=== PATIENT | female | born 1970 | race Caucasian/White ===

== ENCOUNTER 2024-03-31 15:56 | Outpatient (REF) | payer BC, SELFPAY ==
[2024-03-31 19:16] LABS: Erythrocyte Sedimentation Rate 10 MM/HR (0-20)
[2024-04-08 14:49] LABS: Aldolase 5.6 U/L (<=8.1)
== END 2024-03-31 15:57 | disposition home or self-care (01) ==
LOC: HO.LAB 15:56
PROVIDERS: PCP Internal Medicine; Visit Provider Psychiatry & Neurology Neurology
DX: E11.40 Type 2 diabetes mellitus with diabetic neuropathy, unspecified (principal)
CPT/HCPCS: 36415; 82085; 82550; 85652

== ENCOUNTER 2024-04-01 11:56 | Emergency (ER) | payer BC, SELFPAY ==
[2024-04-01 12:03] VITALS: BP 145/85; PULSE 105; RESP 20; TEMP 36.7; O2SAT 99; BMI 30.1
--- NOTE | 2024-04-01 12:04 | ED_ITS ---
HPI - General Adult General Chief complaint: General Medical Stated complaint: exposure to animal, rabies? Time Seen by Provider: 04/01/24 14:02 History of Present Illness HPI narrative: Patient with complaint of feeling that both of her legs may have been week when she went into a squatting position in a store several days ago and had trouble standing back up, but then was able to stand up and walk normally, she has no weakness now and is walking normally and able to squat and stand up normally She did see her neurologist about this Dr. Man who sent some labs and she can follow-up with him Her main concern is that she was bitten on her hand by a squirrel over 6 weeks ago and is worried this could be rabies Today she has no weakness no abnormal pains no headache no confusion no dizziness no vision change no unilateral symptoms ever denies any facial it is asymmetry denies any head trauma denies any stiff neck denies any fevers, denies any trouble urinating no dysuria no incontinence no changes to bowel or bladder no problem walking Related Data Previous Rx's ?Medication ?Instructions ?Recorded erythromycin 5 mg/gram (0.5 %) eye 0.5 inch ophthalmic (eye) BID 7 04/01/24 ointment days #3.5 grams Allergies Allergy/AdvReac Type Severity Reaction Status Date / Time No Known Allergies Allergy Verified 04/01/24 12:11 [No Known Allergies*] [facility] Past Medical History Source: nursing notes reviewed Social History Social History (System 05/16/21 @ 13:15 by Miranda Andrade) Advance Directives: No Advance Directives Information Provided: No Do you have a plan to hurt others: No Plan Physical Exam ED Vital Signs: Vital Signs - 24 hr 04/01/24 12:03 04/01/24 16:02 04/01/24 16:06 Temperature 98.1 F 97.9 F 97.9 F Pulse Rate 105 H 81 81 Respiratory Rate 20 20 20 Blood Pressure 145/85 H 141/87 H 141/87 H Pulse Oximetry 99 98 98 Oxygen Delivery Method Room Air BMI result Body Mass Index 30.1 General appearance is no distress, comfortable and cooperative The head is normocephalic atraumatic Pupils equal round reactive to light extraocular motions are intact Neck is supple Respiratory no distress Extremities full range motion x4 Skin no obvious rash Neuro gait and balance are normal, patient can squat and easily rise up patient can walk on tiptoes can walk on heels patient can walk heel to toe Cranial nerves 2-12 intact, no facial asymmetry, motor is 5/5 x4 and symmetrical, sensation is intact and symmetrical in distal extremities, cerebellar exam [id number] is normal Course Course Course Narrative: This is a Rapid Medical Examination (RME) performed by Arnoldo Jama PA-C in triage. Full HPI, ROS, assessment and treatment plan per primary provider in the Main ED. 53 yo female hx of DM w/ neuropathy here for eval of clumsiness and weakness to lower extremities x 3weeks. admits to 2-3 falls over the last months due to this. admits to squirrel bite to her right either 3rd or 4th digit about 6 wks ago. the squirrel was then found on 02/28/24. states she knows this is the same squirrel and is concerned. Recent EMG testing on RUE and RLE. she told her neurologist about these symptoms yesterday who ordered ESR, CPK, and aldolase checked. since this time, has become more anxious regarding these symptoms. sensation intact to light touch throughout. strength 5/5 intact throughout. ambulating with steady gait. Plan: labs ordered. she is requesting her hgb A1C be checked. Patient's labs drawn today as well as a ESR sent by Dr. Man were all normal except glucose which is 187 A confirmed that is squirrel bites do not need to receive rabies prophylaxis, she has a 6-week-old squirrel bite and has no symptoms of infection, she says she is up-to-date on tetanus immunization Her complaint of bilateral leg weakness is not present today and she is walking and ambulating with full strength, there were no neurologic deficits on my exam She has good close follow-up with a neurologist and her doctor Her symptoms of bilateral weakness in rising from a squat once, her description is that she squatted fully gluteus to heels and then had to put a hand on the ground to rise up and this she says she normally can go to a full squat and rise These are not stroke symptoms of unilateral weakness, she ambulated normally immediately after she had trouble rising from a squatting position She has no progressive weakness no trouble breathing no trouble urinating no trouble ambulating or rising from a squatting position all of which were tested in the ER and is discharged Medical Decision Making Lab Data MDM Lab Attestation statement: I reviewed the patient's lab results. 04/01/24 12:31 04/01/24 12:31 Labs: Lab Results 04/01/24 Range/Units 12:31 WBC 9.8 (4.8-10.8) X10*3/uL RBC 4.70 (4.20-5.50) X10*6/uL Hgb 14.8 (12.0-16.0) g/dl Hct 41.9 (37.0-47.0) % MCV 89.1 (80.0-98.0) fL MCH 31.5 (27.0-33.0) pg MCHC 35.3 H (31.0-35.0) g/dl RDW 12.8 (11.0-16.0) % Plt Count 251 (160-400) X10*3/uL MPV 9.0 L (9.4-12.3) fL Immature Gran % (Auto) 0.6 H (0.0-0.4) % Neut % (Auto) 74.2 H (45-73) % Lymph % (Auto) 17.8 L (20-40) % Rooks % (Auto) 4.6 (2-11) % Eos % (Auto) 2.2 (0-4) % Baso % (Auto) 0.6 (0-2) % Lymph # (Auto) 1.7 (1.2-4.9) X10*3/uL Rooks # (Auto) 0.5 (0.1-1.2) X10*3/uL Eos # (Auto) 0.2 (0.0-0.4) X10*3/uL Baso # (Auto) 0.1 (0.0-0.2) X10*3/uL Abs Immat Gran (auto) 0.06 H (0.00-0.03) X10*3/uL Absolute Neuts (auto) 7.3 (2.0-8.3) x10*3/uL Absolute Nucleated RBC 0.000 (0.0-0.012) X10*3/uL Nucleated RBC % (auto) 0.0 (0.0-0.2) /100WBC Sodium 140 (135-145) mmol/L Potassium 3.8 (3.3-5.1) mmol/L Chloride 107 (96-108) mmol/L Carbon Dioxide 24 (22-29) mmol/L Anion Gap 13 (12-20) BUN 13 (9-16) mg/dL Creatinine 0.66 (0.5-1.4) mg/dL Estim Creat Clear Calc 106.8 Estimated GFR > 60 Random Glucose 187 H (60-115) mg/dL Calcium 9.8 (8.4-10.2) mg/dL Magnesium 1.7 (1.6-2.6) mg/dL Total Bilirubin 0.6 (0.0-1.0) mg/dL AST 16 (5-31) U/L ALT 21 (0-31) U/L Alkaline Phosphatase 63 (39-117) U/L Total Protein 7.7 (6.5-8.0) g/dL Albumin 4.6 (3.5-5.0) g/dL Lipase 58 (8-78) U/L Discharge Plan Discharge Clinical Impression: Blepharitis, Bitten by squirrel Patient Disposition: Home, Self-Care Additional Instructions: Squirrels do not carry rabies and of never been known to carry rabies and there is no known human who is ever gotten rabies from a squirrel Your neurologic exam here today was very normal with very good strength, intermittent weakness in both legs which is resolved now should be followed with your neurologist and her primary doctor, but if anything progresses or gets worse come to the ER immediately Right now today there is no evidence of a TIA or stroke Return any time any worse condition or any concerns I checked her labs and there was no significant abnormality For the irritation/infection on your upper lid I prescribed erythromycin If you develop vision loss or eye pain or significant discharge from the eye return to be re-evaluated Prescriptions: New erythromycin 5 mg/gram (0.5 %) ointment 0.5 inch ophthalmic (eye) BID 7 Days Qty: 3.5 0RF Interventions: ED Discharge Assessment Last Done: 04/01/24 16:06 Discharge Date/Time: 04/01/24 16:07 Print Language: Upper Sorbian
[2024-04-01 12:34] LABS: MANUAL DIFF FLAG NO
[2024-04-01 12:35] LABS: Basophils Absolute Auto 0.1 X10*3/uL (0.0-0.2); Basophils Percent Auto 0.6 % (0-2); Eosinophils Absolute Auto 0.2 X10*3/uL (0.0-0.4); Eosinophils Percent Auto 2.2 % (0-4); Hematocrit 41.9 % (37.0-47.0); Hemoglobin 14.8 g/dl (12.0-16.0); Imm Gran Abs Auto 0.06 X10*3/uL (0.00-0.03); Imm Gran Pct Auto 0.6 % (0.0-0.4); Lymphocytes Absolute Auto 1.7 X10*3/uL (1.2-4.9); Lymphocytes Percent Auto 17.8 % (20-40); Mean Corpuscular HGB Conc 35.3 g/dl (31.0-35.0); Mean Corpuscular Hemoglobin 31.5 pg (27.0-33.0); Mean Corpuscular Volume 89.1 fL (80.0-98.0); Monocytes Absolute Auto 0.5 X10*3/uL (0.1-1.2); Monocytes Percent Auto 4.6 % (2-11); Neutrophils Absolute Auto 7.3 x10*3/uL (2.0-8.3); Neutrophils Percent Auto 74.2 % (45-73); Platelet Count 251 X10*3/uL (160-400); Red Cell Distribution Width 12.8 % (11.0-16.0); White Blood Count 9.8 X10*3/uL (4.8-10.8)
[2024-04-01 12:49] LABS: Alanine Aminotransferase 21 U/L (0-31); Albumin Level 4.6 g/dL (3.5-5.0); Alkaline Phosphatase 63 U/L (39-117); Anion Gap 13 (12-20); Aspartate Amino Transferase 16 U/L (5-31); Bilirubin Total 0.6 mg/dL (0.0-1.0); Blood Urea Nitrogen 13 mg/dL (9-16); Calcium 9.8 mg/dL (8.4-10.2); Carbon Dioxide 24 mmol/L (22-29); Chloride 107 mmol/L (96-108); Creatinine Clr Calc Pharmacy 106.8; Estimated Glomerular Filt Rate > 60; Glucose Random 187 mg/dL (60-115); Lipase 58 U/L (8-78); Magnesium 1.7 mg/dL (1.6-2.6); Potassium 3.8 mmol/L (3.3-5.1); Sodium 140 mmol/L (135-145); Total Protein 7.7 g/dL (6.5-8.0)
[2024-04-01 16:02] VITALS: BP 141/87; PULSE 81; RESP 20; TEMP 36.6; O2SAT 98
[2024-04-01 16:06] VITALS: BP 141/87; PULSE 81; RESP 20; TEMP 36.6; O2SAT 98
== END 2024-04-01 16:07 | disposition home or self-care (01) ==
PROVIDERS: Physician Assistant Medical; Emergency Provider Emergency Medicine; PCP Internal Medicine
DX: H01.009 Unspecified blepharitis unspecified eye, unspecified eyelid (principal); S91.154A Open bite of right lesser toe(s) without damage to nail, initial encounter; W53.21XA Bitten by squirrel, initial encounter; Y93.9 Activity, unspecified; Y92.9 Unspecified place or not applicable; Y99.9 Unspecified external cause status
CPT/HCPCS: 36415; 80053; 83690; 83735; 85025; 99282; 99283